=== PATIENT | male | born 1945 | race African-American/Black ===

== ENCOUNTER 2021-07-11 12:18 | Emergency (ER) | payer OTHER, BC ==
[2021-07-11 12:42] VITALS: BMI 27.3
[2021-07-11] MEDS ORDERED: BEBTELOVIMAB (EUA) 175 MG/2 ML VIAL IVPUSH ONE (13:00)
[2021-07-11 15:21] VITALS: BP 109/67; PULSE 82; TEMP 98.2
== END 2021-07-11 14:40 | disposition home or self-care (01) ==
LOC: JCOVINFU 12:18
DX: U07.1 COVID-19 (principal); R05.1 Acute cough
CPT/HCPCS: 96374; 99284-25; M0222; Q0222